=== PATIENT | female | born 1980 | race Two or more races ===

== ENCOUNTER 2024-11-11 17:13 | Inpatient (IN) | payer MEDICAID, OTHER ==
[~2024-11-11] VITALS: Ht 177.8 cm; Wt 123.8 kg
[2024-11-11 17:59] VITALS: PULSE 74; RESP 16; O2SAT 98
--- NOTE | 2024-11-11 18:08 | ECG ---
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
[2024-11-11 18:37] LABS: Hematocrit 42.3 % (36.0-46.0); Hemoglobin 14.3 g/dL (12.2-16.2); Mean Corpuscular Hemoglobin 28.4 pg (28.0-32.0); Mean Corpuscular Volume 84.4 fL (80.0-100.0); Nucleated Red Blood Cells % 0.1 %
[2024-11-11] MEDS: ONDANSETRON HCL 4 MG/2 ML VIAL IV ONE (18:41)
[2024-11-11] MEDS: SODIUM CHLORIDE 0.9% 1,000 ML IV ONE (18:42)
[2024-11-11] MEDS: LORazepam 2MG/ML-1ML VIAL IV ONE ×2 (18:42→22:25)
[2024-11-11 18:56] LABS: COVID19 ANTIGEN SOFIA FIA NEGATIVE (NEGATIVE)
[2024-11-11 18:59] LABS: Alanine Aminotransferase 22 U/L (7-40); Albumin 4.5 g/dL (3.2-4.8); Alkaline Phosphatase 73 U/L (46-116); BUN/Creatinine Ratio 9.4 (10.0-20.0); Bilirubin, Total 0.6 mg/dL (0.2-1.0); Calcium 9.1 mg/dL (8.7-10.4); Glucose 86 mg/dL (74-106); Lipase 47 U/L (12-53); Potassium 4.5 mmol/L (3.5-5.1); Sodium 142 mmol/L (136-145); Total Protein 7.5 g/dL (5.7-8.2)
[2024-11-11 19:01] LABS: Blood Urea Nitrogen 8 mg/dL (9-23); Chloride 109 mmol/L (98-107)
[2024-11-11 19:06] LABS: Anion Gap 10 (5-15); Carbon Dioxide 23 mmol/L (20-31)
--- NOTE | 2024-11-11 19:17 | ED.PDOC ---
GI ASSESSMENT HPI Comments 44 y/o F history of COPD brought in by EMS from home for c/c nausea, vomiting, generalized shaking and extremity contractions, cough, lost of taste and smell, night sweats and new onset of stuttering speech. Patient states she tested positive for COVID more than a week ago. She denies fever, abdominal pain, diarrhea, constipation or dysuria. She is complaining of retrosternal chest pain. Patient has sister, who is a nurse, states she found the patient on the floor, shaking, vomiting, and complaining of shortness of breath. Sister called 911. On arrival to the ED, the patient appears to be shaking uncontrollably, is alert, is having stuttering speech and bilateral hand and foot muscle spasms. She states she has never had problems with stuttering, tremors or seizure activity in the past. 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 Moist mucous membranes.) Neck: Full Range of Motion, Normal Inspection Respiratory: Lungs Clear, No Accessory Muscle Use, No Respiratory Distress, Normal Breath Sounds Cardiovascular: No Edema, No JVD, Regular Rate/Rhythm Breast Exam: Deferred Gastrointestinal: Non Tender, Soft Genitalia: Deferred Pelvic: Deferred Rectal: Deferred Extremities: Non-tender, No pedal edema, Other (Carpal pedal spasms) Neurologic: Alert (Oriented x4), Other (Bilateral upper and lower extremity tremors, stuttering speech) Cerebellar Function: NOT DONE Reflexes: NOT DONE Skin: Dry, Normal Color, Warm Lymphatic: NOT DONE Was a procedure done? Was a procedure done?: No GI differential Dx Differential Diagnosis: Gastritis/PUD, Gastroenteritis, UTI, Dehydration, Electrolyte Imbalance, Food Poisoning, , Viral, Other (viral syndrome) X-Ray, Labs, Meds, VS Vital Signs Date Time Temp Pulse Resp B/P (MAP) Pulse Ox O2 Delivery O2 Flow Rate FiO2 11/11/24 20:00 98.0 98 16 144/99 (114) 95 98.0 11/11/24 18:10 96 Room Air* 0 21 11/11/24 18:07 90 11/11/24 18:00 87 16 146/99 (115) 95 11/11/24 17:59 74 16 98 Room Air* 0 21 11/11/24 17:58 97.7 79 16 163/93 (116) 95 97.7 11/11/24 17:21 98.2 85 24 99/55 95 98.2 Lab Test 11/11/24 22:01 11/11/24 19:20 11/11/24 18:16 11/11/24 18:10 Range/Units Lactic Acid Level Pending Troponin I High Sensitivity < 3 L < 3 L </=34 ng/L Influenza Type A Antigen Negative Negative Influenza Type B Antigen Negative Negative SARS-CoV-2 Antigen (Rapid) Negative NEGATIVE White Blood Count 16.3 H 4.4-10.8 10^3/uL Red Blood Count 5.02 4.0-5.20 10^6/uL Hemoglobin 14.3 12.2-16.2 g/dL Hematocrit 42.3 36.0-46.0 % Mean Corpuscular Volume 84.4 80.0-100.0 fL Mean Corpuscular Hemoglobin 28.4 28.0-32.0 pg Mean Corpuscular Hemoglobin Concent 33.7 32.0-36.0 g/dL Red Cell Distribution Width 14.8 H 11.8-14.3 % Platelet Count 206 140-450 10^3/uL Mean Platelet Volume 9.6 6.9-10.8 fL Neutrophils (%) (Auto) 83.5 H 37.0-80.0 % Lymphocytes (%) (Auto) 10.8 10.0-50.0 % Monocytes (%) (Auto) 5.1 0.0-12.0 % Eosinophils (%) (Auto) 0.3 0.0-7.0 % Basophils (%) (Auto) 0.3 0.0-2.0 % Neutrophils # (Auto) 13.7 H 1.6-8.6 10 ^3/uL Lymphocytes # (Auto) 1.8 0.4-5.4 10 ^3/uL Monocytes # (Auto) 0.8 0-1.3 10 ^3/uL Eosinophils # (Auto) 0.1 0-0.8 10 ^3/uL Basophils # (Auto) 0.1 0-0.2 10 ^3/uL Nucleated Red Blood Cells 0.1 % Sodium Level 142 136-145 mmol/L Potassium Level 4.5 3.5-5.1 mmol/L Chloride Level 109 H 98-107 mmol/L Carbon Dioxide Level 23 20-31 mmol/L Anion Gap 10 5-15 Blood Urea Nitrogen 8 L 9-23 mg/dL Creatinine 0.85 0.550-1.02 mg/dL Glomerular Filtration Rate Calc 87 >90 mL/min BUN/Creatinine Ratio 9.4 L 10.0-20.0 Serum Glucose 86 74-106 mg/dL Calcium Level 9.1 8.7-10.4 mg/dL Total Bilirubin 0.6 0.2-1.0 mg/dL Aspartate Amino Transferase (AST) 22 13-40 U/L Alanine Aminotransferase (ALT) 22 7-40 U/L Alkaline Phosphatase 73 46-116 U/L B-Type Natriuretic Peptide 38.41 0-100 pg/mL Total Protein 7.5 5.7-8.2 g/dL Albumin 4.5 3.2-4.8 g/dL Lipase 47 12-53 U/L Current Medications Medications (Trade) Dose Ordered Sig/Krish Route Start Time Stop Time Status Last Admin Sodium Chloride 1,000 ml @ 1,000 mls/hr Q1H ONCE IV 11/11/24 17:45 11/11/24 18:44 DC 11/11/24 18:42 Ondansetron HCl (Zofran) 4 mg ONCE ONCE IV 11/11/24 17:45 11/11/24 17:47 DC 11/11/24 18:41 Lorazepam (Ativan Inj) 1 mg ONCE ONCE IV 11/11/24 18:30 11/11/24 18:31 DC 11/11/24 18:42 X-Ray, Labs, Meds, VS Comment 44 y/o F history of COPD brought in by EMS from home for c/c nausea, vomiting, generalized shaking and extremity contractions, cough, lost of taste and smell, night sweats and new onset of stuttering speech. Vitals remarkable for BP 163/93 Exam remarkable for uncontrollable shaking of extremities, stuttering speech, active vomiting Rhythm strip independently interpreted by me: Sinus rhythm, rate 79, no ectopy. Head CT unremarkable Chest x-ray FINDINGS/IMPRESSION: Minimal right basilar opacity. The cardiomediastinal silhouette is unremarkable. No pleural effusion or pneumothorax. No acute osseous abnormality. CBC remarkable for WBC 16.3, basic metabolic panel, BNP, troponin, lipase, influenza and COVID tests unremarkable. Patient treated with the following in the ED: 1 L 0.9 normal saline IV bolus, Zofran 4 mg IV, Ativan 1 mg IV. After Ativan, tremors, stuttering and carpal pedal spasms resolved. Patient also received Rocephin 1 g IV and Zithromax 500 mg IV to cover possible pneumonia. Patient had recurrence of shaking movements, so received an additional 1 mg of A tivan IV which resolved the symptoms. Plan is to admit the patient for neurology evaluation and IV antibiotics. Time of 1ST Reevaluation: 18:45 Reevaluation 1ST: Unchanged Patient Education/Counseling: Diagnosis, Treatment Family Education/Counseling: No Family Present SEPSIS Sepsis Screen Date sepsis recognized/suspect: Nov 11, 2024 Time Sepsis recognized/suspect: 1808 Recent Procedure: No On Antibiotic Therapy: No Respiratory Rate >20: No Heart Rate >90: No Temp<36 C (96.8 F) or >38.3 C: No SBP <90 or MAP <65 mmHG: No New Acute Mental Status Change: No Is the patient on CPAP, BIPAP,: No Physician Orders Urinalysis (11/11/24 17:45) Head Without Contrast (11/11/24 18:16) Chest Portable (11/11/24 18:16) Stool Wbc (11/11/24 20:41) Stool Bacterial Culture (11/11/24 20:41) Stool Occult Blood (11/11/24 20:41) Ph Stool (11/11/24 20:41) Lactic Acid W/ Reflex Order (11/11/24 21:48) Blood Culture (11/11/24 21:48) Azithromycin 500mg/ 250ml (Zithromax 50 (11/11/24 22:00) Vital Signs Date Time Temp Pulse Resp B/P (MAP) Pulse Ox O2 Delivery O2 Flow Rate FiO2 11/11/24 20:00 98.0 98 16 144/99 (114) 95 98.0 11/11/24 18:10 96 Room Air* 0 21 11/11/24 18:07 90 11/11/24 18:00 87 16 146/99 (115) 95 11/11/24 17:59 74 16 98 Room Air* 0 21 11/11/24 17:58 97.7 79 16 163/93 (116) 95 97.7 11/11/24 17:21 98.2 85 24 99/55 95 98.2 Laboratory Tests Test 11/11/24 18:10 11/11/24 22:01 White Blood Count 16.3 10^3/uL (4.4-10.8) H Lactic Acid Level Pending Medications Medications Dose Ordered Sig/Krish Route Start Time Stop Time Status Last Admin Dose Admin Lorazepam 1 mg ONCE ONCE IV 11/11/24 18:30 11/11/24 18:31 DC 11/11/24 18:42 Lorazepam 2 mg STK-MED ONCE .ROUTE 11/11/24 22:14 11/11/24 22:10 DC 11/11/24 22:26 Ondansetron HCl 4 mg ONCE ONCE IV 11/11/24 17:45 11/11/24 17:47 DC 11/11/24 18:41 Sodium Chloride 1,000 ml @ 1,000 mls/hr Q1H ONCE IV 11/11/24 17:45 11/11/24 18:44 DC 11/11/24 18:42 Departure 1 Departure Time of Disposition: 22:00 Impression: Primary Impression: Tremor Additional Impressions: Muscle spasms of both lower extremities Stuttering Pneumonia Disposition: ADMITTED INPATIENT Admit to: Tele Condition: Guarded Critical Care Note Critical Care Time?: No Stability Stability form required: No Heart Score Heart Score: Heart Score Response (Comments) Value History N/A 0 EKG N/A 0 Age N/A 0 Risk Factors N/A 0 Troponin N/A 0 Total 0 I personally scribed for ASHLEY CARPENTER MD ([email or web address]) on 11/11/24 at 19:17. Electronically submitted by Xavier Us ([email or web address]). ASHLEY CARPENTER MD Nov 11, 2024 19:17
--- NOTE | 2024-11-11 21:21 | DVH ---
INDICATION: cp TECHNIQUE: Frontal view of the chest. COMPARISON: None FINDINGS/IMPRESSION: Minimal right basilar opacity. The cardiomediastinal silhouette is unremarkable . No pleural effusion or pneumothorax. No acute osseous abnormality.
--- NOTE | 2024-11-11 21:35 | DVH ---
EXAM: CT HEAD WITHOUT CONTRAST INDICATION: New onset Tremors, muscle spasms, stuttering TECHNIQUE: CT of the head without intravenous contrast. Radiation Dose Information: CT Dose: CTDI volume is 67.21 mGy. Dose-length product is 1322.55 mGy*cm The dose indicators for CT are the volume Computed Tomography (CT) Dose Index (CTDIvol) and the Dose Length Product (DLP), and are measured in units of mGy and mGy-cm, respectively. These indicators are not patient dose, but values generated from the CT scanner acquisition factors. The report includes radiation exposure data for exposures received during this examination. COMPARISON: None FINDINGS: There is no evidence of acute intracranial hemorrhage, extra-axial collection, mass effect, midline s hift, herniation or hydrocephalus. The ventricles, sulci and cisterns are age appropriate. The newell-white differentiation is intact. Patchy periventricular and subcortical white matter hypoattenuation is nonspecific but may be related to small vessel ischemic disease. The visualized paranasal sinuses and mastoid air cells are clear. The surrounding soft tissues and osseous structures are unremarkable. IMPRESSION: 1. No acute intracranial abnormality.
[2024-11-11] MEDS: ONDANSETRON HCL 4 MG/2 ML VIAL ONE (22:25)
[2024-11-11] MEDS: LORazepam 2MG/ML-1ML VIAL ONE (22:26)
[2024-11-11] MEDS ORDERED: DOCUSATE SOD 100 MG CAP PO PRN (23:15)
[2024-11-11] MEDS ORDERED: ONDANSETRON HCL 4 MG/2 ML VIAL IV PRN (23:15)
[2024-11-11] MEDS ORDERED: ACETAMINOPHEN 325 MG TAB PO PRN (23:15)
[2024-11-11] MEDS: LACTATED RINGER'S 1,000 ML IV SCH (23:15)
[2024-11-11] MEDS: AZITHROMYCIN 500MG/ 250ML 250 ML IV ONE (23:55)
--- NOTE | 2024-11-12 00:09 | DVHHP2 ---
History of Present Illness Reason for Visit: Tremor History of Present Illness The patient is a 44-year-old female with past medical history of COPD who presented to [facility] ED with complaint of intractable nausea and vomiting. Patient reports she tested positive for COVID for more than a week, experiencing generalized shaking, contraction of extremity, cough, loss of taste and smell, night sweats, new onset of stuttering speech, retrosternal chest pain. Patient's sister, who is a nurse, reports she found the patient on the floor, shaking, vomiting, and complaining of shortness of breath. Sister called 911. On arrival to the ED, the patient appears to be shaking uncontrollably. Patient was seen and evaluated in the ED, laboratory data shows WBC 16.3, platelets 206, sodium 142, potassium 4.5, BUN eight, creatinine 0.85, glucose 86, calcium 9.1, troponin three, lipase 47, BNP 38.41, blood pressure 144/99, heart rate 98, temperature 98.0 F, O2 saturation 96% on room air. Please see medication orders section in the computer. On my assessment, patient denied chest pain, no headache, no dizziness, no diaphoresis, no shortness of breaths, no nausea, no vomiting, no fever, no chills. Patient was admitted for further evaluation and medical management. Past Medical History COPD Past Surgical History Denies all surgeries Family History Reviewed, noncontributory to the management of this case. Past Social History The patient lives at home, denies smoking, alcohol or illicit drugs abuse. Review of Systems Constitutional: No: Fever, Chills, Sweats, Weakness, Malaise, Other Eyes: No: Pain, Vision change, Conjunctivae inflammation, Eyelid inflammation, Other, Redness ENT: No: Ear pain, Ear discharge, Nose pain, Nose discharge, Nose congestion, Mouth pain, Mouth swelling, Throat pain, Throat swelling, Other Respiratory: Cough, Shortness of breath; No: Dry, SOB with excertion, Wheezing, Hemoptysis, Pleuritic Pain, Sputum, Wheezing, Other Cardiovascular: No: Chest Pain, Palpitations, Orthopnea, Paroxysmal Noc. Dyspnea, Edema, Lt Headedness, Other Gastrointestinal: Nausea, Vomiting; No: Abdominal Pain, Diarrhea, Constipation, Melena, Hematochezia, Other Genitourinary: No Dysuria, No Frequency, No Incontinence, No Hematuria, No Retention, No Other Musculoskeletal: No: other, neck pain, shoulder pain, arm pain, back pain, hand pain, leg pain, foot pain Skin: No: Rash, Lesions, Jaundice, Bruising, Other Neurological: No: Weakness, Numbness, Incoordination, Change in speech, Confusion, Seizures, Other Allergies: Coded Allergies: NO KNOWN ALLERGIES (Unverified , 11/11/24) Medications Current Medications Medications Dose Ordered Sig/Krish Route Start Time Stop Time Status Last Admin Dose Admin Ceftriaxone Sodium 50 ml @ 100 mls/hr DAILY@2200 IV 11/12/24 22:00 Lorazepam 1 mg Q8HP PRN IV 11/11/24 23:15 Acetaminophen/ Hydrocodone Bitart 1 tab Q4HP PRN PO 11/11/24 23:15 Ondansetron HCl 4 mg Q4HP PRN IV 11/11/24 23:15 Docusate Sodium 100 mg BIDPRN PRN PO 11/11/24 23:15 Acetaminophen 650 mg Q6HP PRN PO 11/11/24 23:15 Lactated Ringer's 1,000 ml @ 75 mls/hr [id number] IV 11/11/24 23:15 Exam Vital Signs Vital Signs Date Time Temp Pulse Resp B/P (MAP) Pulse Ox O2 Delivery O2 Flow Rate FiO2 11/11/24 20:00 98.0 98 16 144/99 (114) 95 98.0 11/11/24 18:10 Room Air* 0 21 General Appearance: Alert, Oriented X3, Cooperative, No acute distress HEENT: Atraumatic, PERRLA, EOMI, Mucous membr. moist/pink Respiratory: Normal air movement Cardiovascular: Regular rate, Normal S1, Normal S2, No murmurs Abdominal: Normal bowel sounds, Soft, No tenderness, No hepatospenomegaly, No masses Extremities: No clubbing, No cyanosis, No edema, Normal pulses, No tenderness/swelling Skin: No rashes, No breakdown, No significant lesion Neuro: Normal gait, Normal speech, Strength at 5/5 X4 ext, Normal tone, Sensation intact, Cranial nerves 3-12 NL, Reflexes 2+ Psych/Mental Status: Mental status NL, Mood NL Labs/Xrays Labs Test 11/11/24 22:01 11/11/24 19:20 11/11/24 18:16 11/11/24 18:10 Range/Units Lactic Acid Level 1.0 0.4-2.0 mmol/L Troponin I High Sensitivity < 3 L </=34 ng/L Influenza Type A Antigen Negative Negative Influenza Type B Antigen Negative Negative SARS-CoV-2 Antigen (Rapid) Negative NEGATIVE White Blood Count 16.3 H 4.4-10.8 10^3/uL Red Blood Count 5.02 4.0-5.20 10^6/uL Hemoglobin 14.3 12.2-16.2 g/dL Hematocrit 42.3 36.0-46.0 % Mean Corpuscular Volume 84.4 80.0-100.0 fL Mean Corpuscular Hemoglobin 28.4 28.0-32.0 pg Mean Corpuscular Hemoglobin Concent 33.7 32.0-36.0 g/dL Red Cell Distribution Width 14.8 H 11.8-14.3 % Platelet Count 206 140-450 10^3/uL Mean Platelet Volume 9.6 6.9-10.8 fL Neutrophils (%) (Auto) 83.5 H 37.0-80.0 % Lymphocytes (%) (Auto) 10.8 10.0-50.0 % Monocytes (%) (Auto) 5.1 0.0-12.0 % Eosinophils (%) (Auto) 0.3 0.0-7.0 % Basophils (%) (Auto) 0.3 0.0-2.0 % Neutrophils # (Auto) 13.7 H 1.6-8.6 10 ^3/uL Lymphocytes # (Auto) 1.8 0.4-5.4 10 ^3/uL Monocytes # (Auto) 0.8 0-1.3 10 ^3/uL Eosinophils # (Auto) 0.1 0-0.8 10 ^3/uL Basophils # (Auto) 0.1 0-0.2 10 ^3/uL Nucleated Red Blood Cells 0.1 % Sodium Level 142 136-145 mmol/L Potassium Level 4.5 3.5-5.1 mmol/L Chloride Level 109 H 98-107 mmol/L Carbon Dioxide Level 23 20-31 mmol/L Anion Gap 10 5-15 Blood Urea Nitrogen 8 L 9-23 mg/dL Creatinine 0.85 0.550-1.02 mg/dL Glomerular Filtration Rate Calc 87 >90 mL/min BUN/Creatinine Ratio 9.4 L 10.0-20.0 Serum Glucose 86 74-106 mg/dL Calcium Level 9.1 8.7-10.4 mg/dL Total Bilirubin 0.6 0.2-1.0 mg/dL Aspartate Amino Transferase (AST) 22 13-40 U/L Alanine Aminotransferase (ALT) 22 7-40 U/L Alkaline Phosphatase 73 46-116 U/L B-Type Natriuretic Peptide 38.41 0-100 pg/mL Total Protein 7.5 5.7-8.2 g/dL Albumin 4.5 3.2-4.8 g/dL Lipase 47 12-53 U/L PATIENT: JUDY HEIN ACCT: [id number] UNIT: [id number] : 1980 LOC: ER ROOM / BED: / AGE / SEX: 44 / F ADM STATUS: REG ER SERVICE 15 ORDERING PHYSICIAN: ASHLEY CARPENTER MD PROCEDURE(s): HWOCT - HEAD WITHOUT CONTRAST REASON: New onset Tremors, muscle spasms, stuttering ORDER NUMBER(s): [id number], ACCESSION NUMBER(s): [id number] EXAM: CT HEAD WITHOUT CONTRAST INDICATION: New onset Tremors, muscle spasms, stuttering TECHNIQUE: CT of the head without intravenous contrast. Radiation Dose Information: CT Dose: CTDI volume is 67.21 mGy. Dose-length product is 1322.55 mGy*cm The dose indicators for CT are the volume Computed Tomography (CT) Dose Index (CTDIvol) and the Dose Length Product (DLP), and are measured in units of mGy and mGy-cm, respectively. These indicators are not patient dose, but values generated from the CT scanner acquisition factors. The report includes radiation exposure data for exposures received during this examination. COMPARISON: None FINDINGS: There is no evidence of acute intracranial hemorrhage, extra-axial collection, mass effect, midline shift, herniation or hydrocephalus. The ventricles, sulci and cisterns are age appropriate. The newell-white differentiation is intact. Patchy periventricular and subcortical white matter hypoattenuation is nonspecific but may be related to small vessel ischemic disease. The visualized paranasal sinuses and mastoid air cells are clear. The surrounding soft tissues and osseous structures are unremarkable. IMPRESSION: 1. No acute intracranial abnormality. ORDERING PHYSICIAN: ASHLEY CARPENTER MD PROCEDURE(s): CXRP - CHEST PORTABLE REASON: cp ORDER NUMBER(s): [id number], ACCESSION NUMBER(s): [id number] INDICATION: cp TECHNIQUE: Frontal view of the chest. COMPARISON: None FINDINGS/IMPRESSION: Minimal right basilar opacity. The cardiomediastinal silhouette is unremarkable. No pleural effusion or pneumothorax. No acute osseous abnormality. SEPSIS Sepsis Screen Date sepsis recognized/suspect: Nov 11, 2024 Time Sepsis recognized/suspect: 1808 Recent Procedure: No On Antibiotic Therapy: No Respiratory Rate >20: No Heart Rate >90: No Temp<36 C (96.8 F) or >38.3 C: No SBP <90 or MAP <65 mmHG: No New Acute Mental Status Change: No Is the patient on CPAP, BIPAP,: No Physician Orders Urinalysis (11/11/24 17:45) Head Without Contrast (11/11/24 18:16) Chest Portable (11/11/24 18:16) Stool Wbc (11/11/24 20:41) Stool Bacterial Culture (11/11/24 20:41) Stool Occult Blood (11/11/24 20:41) Ph Stool (11/11/24 20:41) Blood Culture (11/11/24 21:48) Ceftriaxone 1gm/50ml D5w (Rocephin) (11/12/24 22:00) Lorazepam 2mg/Ml Inj (Ativan Inj) (11/11/24 23:15) Allergies (11/11/24 23:05) Code Status (11/11/24 23:05) Oxygen Per Hour (11/11/24 23:05) Hydrocodone-Acet 5/325mg Tab ([place] 5/32 (11/11/24 23:15) Ondansetron Hcl (Zofran) (11/11/24 23:15) Docusate Sodium Capsule (Colace Capsule) (11/11/24 23:15) Complete Blood Count (11/12/24 04:00) Comprehensive Metabolic Panel (11/12/24 04:00) Condition: Serious (11/11/24 23:05) Acetaminophen Tablet (Tylenol Tablet) (11/11/24 23:15) Clear Liq Diet (11/12/24 Breakfast) Bedrest With Bathroom Privileg (11/11/24 23:05) Sequential Compression Device (11/11/24 ) Lactated Ringer's (11/11/24 23:15) Vital Signs Date Time Temp Pulse Resp B/P (MAP) Pulse Ox O2 Delivery O2 Flow Rate FiO2 11/11/24 20:00 98.0 98 16 144/99 (114) 95 98.0 11/11/24 18:10 96 Room Air* 0 21 11/11/24 18:07 90 11/11/24 18:00 87 16 146/99 (115) 95 11/11/24 17:59 74 16 98 Room Air* 0 21 11/11/24 17:58 97.7 79 16 163/93 (116) 95 97.7 11/11/24 17:21 98.2 85 24 99/55 95 98.2 Laboratory Tests Test 11/11/24 18:10 11/11/24 22:01 White Blood Count 16.3 10^3/uL (4.4-10.8) H Lactic Acid Level 1.0 mmol/L (0.4-2.0) Medications Medications Dose Ordered Sig/Krish Route Start Time Stop Time Status Last Admin Dose Admin Lorazepam 1 mg ONCE ONCE IV 11/11/24 18:30 11/11/24 18:31 DC 11/11/24 18:42 1 MG Lorazepam 2 mg STK-MED ONCE .ROUTE 11/11/24 22:14 11/11/24 22:10 DC 11/11/24 22:26 2 MG Ondansetron HCl 4 mg ONCE ONCE IV 11/11/24 17:45 11/11/24 17:47 DC 11/11/24 18:41 4 MG Sodium Chloride 1,000 ml @ 1,000 mls/hr Q1H ONCE IV 11/11/24 17:45 11/11/24 18:44 DC 11/11/24 18:42 1,000 MLS/HR Assessment/Plan Assessment/Plan Tremor Stuttering Muscle spasms of both lower extremities Pneumonia, unspecified organism Plan 1. Admit to telemetry unit 2. Breathing treatment 3. Pain control management 4. IV antibiotic management 5. Management of fluids and electrolytes 6. Consultation for hospitalist 7. Diagnostic test chest x-ray 8. DVT prophylaxis-on SCDs 9. Repeat labs CBC, CMP in a.m. 10. Home medication reviewed and reconciled 11. Continue with current medical management 12. Treatment plan discussed with patient and RN. Patient verbalized understanding. Plan discussed with: Patient, Other (RN) My Orders Orders - MAHOGANY MARQUIS DNP Procedure Category Date Status Time Ceftriaxone 1gm/50ml PHA 11/12/24 In Process D5w (Rocephin) 22:00 Lorazepam 2mg/Ml Inj PHA 11/11/24 In Process (Ativan Inj) 23:15 Allergies SHUN 11/11/24 In Process 23:05 Code Status CODE 11/11/24 Transmitted 23:05 Oxygen Per Hour RT 11/11/24 Transmitted 23:05 Hydrocodone-Acet PHA 11/11/24 In Process 5/325mg Tab ([place] 23:15 Ondansetron Hcl PHA 11/11/24 In Process (Zofran) 23:15 Docusate Sodium PHA 11/11/24 In Process Capsule (Colace 23:15 Complete Blood Count LAB 11/12/24 Logged 04:00 Comprehensive LAB 11/12/24 Logged Metabolic Panel 04:00 Condition: Serious SHUN 11/11/24 In Process 23:05 Acetaminophen Tablet PHA 11/11/24 In Process (Tylenol Tablet) 23:15 Clear Liq Diet DIET 11/12/24 Transmitted Breakfast Bedrest With Bathroom SHUN 11/11/24 In Process Privileg 23:05 Sequential SHUN 11/11/24 In Process Compression Device Lactated Ringer's PHA 11/11/24 In Process 23:15 Problem List: (1) Tremor (2) Stuttering (3) Muscle spasms of both lower extremities (4) Pneumonia, unspecified organism Date of Service: Nov 12, 2024 Billing Provider: MAHOGANY MARQUIS DNP Common Visit Codes: [id number] INP/OBS CARE (HIGH) MAHOGANY MARQUIS DNP Nov 12, 2024 00:09
[2024-11-12] MEDS ORDERED: MORPHINE SULFATE INJ 2 MG/ml SYRG IV PRN (00:15)
[2024-11-12] MEDS ORDERED: NITROGLYCERIN 0.4 MG SL TAB SL PRN (00:15)
[2024-11-12 04:52] LABS: Hematocrit 34.8 % (36.0-46.0); Hemoglobin 12.1 g/dL (12.2-16.2); Mean Corpuscular Hemoglobin 28.6 pg (28.0-32.0); Mean Corpuscular Volume 82.4 fL (80.0-100.0); Nucleated Red Blood Cells % 0.0 %
[2024-11-12 05:01] LABS: Alanine Aminotransferase 20 U/L (7-40); Albumin 3.9 g/dL (3.2-4.8); Alkaline Phosphatase 60 U/L (46-116); Anion Gap 5 (5-15); BUN/Creatinine Ratio 11.0 (10.0-20.0); Bilirubin, Total 0.6 mg/dL (0.2-1.0); Carbon Dioxide 25 mmol/L (20-31); Glucose 86 mg/dL (74-106); Potassium 4.0 mmol/L (3.5-5.1); Sodium 141 mmol/L (136-145); Total Protein 6.2 g/dL (5.7-8.2)
[2024-11-12 05:14] LABS: Blood Urea Nitrogen 8 mg/dL (9-23); Calcium 8.4 mg/dL (8.7-10.4); Chloride 111 mmol/L (98-107)
[2024-11-12 07:40] VITALS: PULSE 71; RESP 16; O2SAT 98
[2024-11-12 09:40] VITALS: PULSE 67; RESP 15; O2SAT 96
[2024-11-12 16:12] LABS: Urine Protein, UAD Negative (Negative)
--- NOTE | 2024-11-12 18:04 | DVHPN2 ---
Subjective I am assuming the care of the patient from today on bruits. Patient has stated that she has some foot muscle spasm as well as and muscle spasms tremors the whole-body a left facial droop. Also patient stated that she was recently positive for COVID 19, COVID-19 is negative here. Changes from previous H/P or p: No Changes Eyes: No Pain, No Vision change, No Conjunctivae inflammation, No Eyelid inflammation, No Other, No Redness ENT: No Ear pain, No Ear discharge, No Nose pain, No Nose discharge, No Nose congestion, No Mouth pain, No Mouth swelling, No Throat pain, No Throat swelling, No Other Cardiovascular: No Chest Pain, No Palpitations, No Orthopnea, No Paroxysmal Noc. Dyspnea, No Edema, No Lt Headedness, No Other Respiratory: Cough; No Dry; Shortness of breath; No SOB with excertion, No Wheezing, No Hemoptysis, No Pleuritic Pain, No Sputum, No Other Gastrointestinal: Nausea, Vomiting; No Abdominal Pain, No Diarrhea, No Constipation, No Melena, No Hematochezia, No Other Genitourinary: No Dysuria, No Frequency, No Incontinence, No Hematuria, No Retention, No Other Musculoskeletal: No other, No neck pain, No shoulder pain, No arm pain, No back pain, No hand pain, No leg pain, No foot pain Skin: No Rash, No Lesions, No Jaundice, No Bruising, No Other Objective Vitals Vital Signs Date Time Temp Pulse Resp B/P (MAP) Pulse Ox O2 Delivery O2 Flow Rate FiO2 11/12/24 16:00 70 11/12/24 16:00 16 140/101 (114) 97 11/12/24 09:40 Room Air* 0 21 11/12/24 09:40 98.0 98.0 Intake/Output Intake and Output 11/12/24 07:00 Intake Total 1000 ml Output Total 800 ml Balance 200 ml Intake IV Total 1000 ml Output Urine Total 300 ml Stool Total 500 ml Exam HEENT pupils are reactive, no left fistula Neck is supple CVS S1-S2 regular rate and rhythm Respiratory bile duct clear GI positive bowel sounds Extremity no edema P[employer]ER no motor deficit Medications Current Medications Medications Dose Ordered Sig/Krish Route Start Time Stop Time Status Last Admin Dose Admin Ceftriaxone Sodium 50 ml @ 100 mls/hr DAILY@2200 IV 11/12/24 22:00 Lorazepam 1 mg Q8HP PRN IV 11/11/24 23:15 Acetaminophen/ Hydrocodone Bitart 1 tab Q4HP PRN PO 11/11/24 23:15 Ondansetron HCl 4 mg Q4HP PRN IV 11/11/24 23:15 Docusate Sodium 100 mg BIDPRN PRN PO 11/11/24 23:15 Acetaminophen 650 mg Q6HP PRN PO 11/11/24 23:15 Lactated Ringer's 1,000 ml @ 75 mls/hr [id number] IV 11/11/24 23:15 11/11/24 23:15 75 MLS/HR Nitroglycerin 0.4 mg Q5MINP PRN SL 11/12/24 00:15 Morphine Sulfate 2 mg Q30M PRN IV 11/12/24 00:15 Azithromycin 250 ml @ 125 mls/hr DAILY@2200 IV 11/12/24 22:00 Laboratory Results Laboratory Tests 11/12/24 04:32 Chemistry Test 11/11/24 18:10 11/12/24 04:32 Albumin 4.5 g/dL (3.2-4.8) 3.9 g/dL (3.2-4.8) Calcium Level 9.1 mg/dL (8.7-10.4) 8.4 mg/dL (8.7-10.4) L Total Protein 7.5 g/dL (5.7-8.2) 6.2 g/dL (5.7-8.2) Lipid panel Test 11/11/24 18:10 Lipase 47 U/L (12-53) Cardiac Markers Test 11/11/24 18:10 B-Type Natriuretic Peptide 38.41 pg/mL (0-100) LFT Test 11/11/24 18:10 11/12/24 04:32 Alanine Aminotransferase (ALT) 22 U/L (7-40) 20 U/L (7-40) Alkaline Phosphatase 73 U/L (46-116) 60 U/L (46-116) Aspartate Amino Transferase (AST) 22 U/L (13-40) 23 U/L (13-40) Total Bilirubin 0.6 mg/dL (0.2-1.0) 0.6 mg/dL (0.2-1.0) Urinalysis Test 11/12/24 00:00 Urine Color Colorless (Yellow) Urine Clarity Clear (Clear) Urine pH 6.5 (5.0-9.0) Urine Specific [place] 1.023 (1.001-1.035) Urine Protein Negative (Negative) Urine Ketones Negative (Negative) Urine Blood 3+ /uL (Negative) H Urine Nitrite Negative (Negative) Urine Bilirubin Negative (Negative) Urine Urobilinogen Normal mg/dL (Negative) Urine Leukocyte Esterase 1+ /uL (Negative) Urine RBC 607 /hpf (0 - 4) Urine Microscopic WBC 9 /HPF (0-5) H Urine Squamous Epithelial Cells Few /hpf (<5) Urine Bacteria None seen /hpf (None Seen) Urine Mucus Few (None Seen) Urine Glucose Normal mg/dL (Normal) Assessment/Plan Assessment/Plan 40-year-old female with known history of COPD, presented to the hospital with a generalized body spasms tremors questionable left facial droop(not present), slurred speech found to have 1. Generalized body spasms/tremor/slurred speech rule out acute CVA 2. Generalized body muscle spasms rule out any seizures 3. Right basilar lung basilar consolidation/pneumonia, on IV antibiotics 4.COPD currently not in exacerbation -, debride noncontrast neurology consultation common bile duct for anesthesia likely DVTs IV antibiotics can be switched to p.o. antibiotics for pneumonia upon discharge. Plan discussed with: Patient My Orders Orders - LINDA VALENCIA MD Procedure Category Date Status Time Brain Head Wo Contrast MRI 11/12/24 Logged 17:57 Date of Service: Nov 12, 2024 Billing Provider: LINDA VALENCIA MD Common Visit Codes: [id number] INP/OBS CARE(MOD) LINDA VALENCIA MD Nov 12, 2024 18:04
[2024-11-12] MEDS: AZITHROMYCIN 500MG/ 250ML 250 ML IV SCH (23:50)
[2024-11-13] VITALS (9 sets, daily range): BP systolic 120–146; BP diastolic 75–91; PULSE 60–75; RESP 16–20; TEMP 97.4–98.9; O2SAT 95–98
[2024-11-13] MEDS: LORazepam 2MG/ML-1ML VIAL IV PRN (01:19)
[2024-11-13] MEDS: HYDROcodone-ACET 5/325MG TAB PO PRN (09:03)
--- NOTE | 2024-11-13 12:20 | DVH ---
EXAMINATION: MRI BRAIN HEAD WO CONTRAST INDICATION: Slurred speech/left facial loop COMPARISON: CT HEAD WITHOUT CONTRAST on DOS: 11/11/24 TECHNIQUE: Multiplanar, multisequence magnetic resonance imaging of the brain was performed without the use of i ntravenous contrast. FINDINGS: No evidence of acute or remote infarct. No intracranial hemorrhage. No mass effect. There is periventricular/deep white matter T2/FLAIR hyperintensity is nonspecific, but most commonly associated with chronic microvascular disease. The ventricles and sulci are normal in size for age. Clear basal cisterns. Flow voids in the major intracranial vessels are maintained. No abnormality of the orbits. Paranasal sinuses and mastoid air cells are clear. No abnormality of the visualized osseous structures and extracranial soft tissues. IMPRESSION: No acute infarct, intracranial hemorrhage, mass effect, or hydrocephalus.
--- NOTE | 2024-11-13 22:31 | DVHPN2 ---
Subjective Admitted for generalized body shakes. Her MRI of the brain is unremarkable. Patient's speech at times is normal. Appears possible supra tentorial/psychogenic in nature. Changes from previous H/P or p: No Changes Eyes: No Pain, No Vision change, No Conjunctivae inflammation, No Eyelid inflammation, No Other, No Redness ENT: No Ear pain, No Ear discharge, No Nose pain, No Nose discharge, No Nose congestion, No Mouth pain, No Mouth swelling, No Throat pain, No Throat swelling, No Other Cardiovascular: No Chest Pain, No Palpitations, No Orthopnea, No Paroxysmal Noc. Dyspnea, No Edema, No Lt Headedness, No Other Respiratory: Cough; No Dry; Shortness of breath; No SOB with excertion, No Wheezing, No Hemoptysis, No Pleuritic Pain, No Sputum, No Other Gastrointestinal: Nausea, Vomiting; No Abdominal Pain, No Diarrhea, No Constipation, No Melena, No Hematochezia, No Other Genitourinary: No Dysuria, No Frequency, No Incontinence, No Hematuria, No Retention, No Other Musculoskeletal: No other, No neck pain, No shoulder pain, No arm pain, No back pain, No hand pain, No leg pain, No foot pain Skin: No Rash, No Lesions, No Jaundice, No Bruising, No Other Objective Vitals Vital Signs Date Time Temp Pulse Resp B/P (MAP) Pulse Ox O2 Delivery O2 Flow Rate FiO2 11/13/24 20:00 69 16 96 Room Air* 0 21 11/13/24 17:00 98.4 133/91 (105) 98.4 Intake/Output Intake and Output 11/13/24 07:00 Intake Total 450 ml Output Total 0 ml Balance 450 ml Intake Oral 200 ml IV Total 250 ml Output Urine Total 0 ml Exam Alert awake oriented x3. Able to speak normally and times speaks with a slow nurse/slurred redness during conversation. Able to move all four extremities. No visible shakes tremors fasciculations noted. Heart regular rate and rhythm S1-S2. Lungs fair air movement without rales wheezes. Abdomen obese soft positive bowel sounds. Extremities no edema positive pulses. Neurologically no focal deficits. Medications Current Medications Medications Dose Ordered Sig/Krish Route Start Time Stop Time Status Last Admin Dose Admin Ceftriaxone Sodium 50 ml @ 100 mls/hr DAILY@2200 IV 11/12/24 22:00 11/13/24 21:17 100 MLS/HR Lorazepam 1 mg Q8HP PRN IV 11/11/24 23:15 11/13/24 01:19 1 MG Acetaminophen/ Hydrocodone Bitart 1 tab Q4HP PRN PO 11/11/24 23:15 11/13/24 09:03 1 TAB Ondansetron HCl 4 mg Q4HP PRN IV 11/11/24 23:15 Docusate Sodium 100 mg BIDPRN PRN PO 11/11/24 23:15 Acetaminophen 650 mg Q6HP PRN PO 11/11/24 23:15 Lactated Ringer's 1,000 ml @ 75 mls/hr [id number] IV 11/11/24 23:15 11/13/24 12:56 75 MLS/HR Nitroglycerin 0.4 mg Q5MINP PRN SL 11/12/24 00:15 Morphine Sulfate 2 mg Q30M PRN IV 11/12/24 00:15 Azithromycin 250 ml @ 125 mls/hr DAILY@2200 IV 11/12/24 22:00 11/13/24 22:20 125 MLS/HR Laboratory Results Laboratory Tests 11/12/24 04:32 Urinalysis Test 11/12/24 00:00 Urine Color Colorless (Yellow) Urine Clarity Clear (Clear) Urine pH 6.5 (5.0-9.0) Urine Specific [place] 1.023 (1.001-1.035) Urine Protein Negative (Negative) Urine Ketones Negative (Negative) Urine Blood 3+ /uL (Negative) H Urine Nitrite Negative (Negative) Urine Bilirubin Negative (Negative) Urine Urobilinogen Normal mg/dL (Negative) Urine Leukocyte Esterase 1+ /uL (Negative) Urine RBC 607 /hpf (0 - 4) Urine Microscopic WBC 9 /HPF (0-5) H Urine Squamous Epithelial Cells Few /hpf (<5) Urine Bacteria None seen /hpf (None Seen) Urine Mucus Few (None Seen) Urine Glucose Normal mg/dL (Normal) Microbiology Microbiology Date/Time Source Procedure Growth Status 11/11/24 22:10 Blood Blood Culture - Preliminary NO GROWTH AFTER 48 HOURS OF INCUBATION. Resulted Assessment/Plan Assessment/Plan 1. Generalized body spasms/tremor/slurred speech rule out acute CVA 2. Generalized body muscle spasms rule out any seizures 3. Right basilar lung basilar consolidation/pneumonia, on IV antibiotics 4.COPD currently not in exacerbation Her symptoms and atypical presentation of shakes tremors appears non neurogenic possible supratentorial/psychogenic in nature. We will advance her diet. Encouraged out of bed ambulate. Continue present management if she remains stable consider discharge home tomorrow. Discussed with the patient Plan discussed with: Patient, Other My Orders Orders - RUTHANN YOUNG MD Procedure Category Date Status Time * Dietary Consult CONS 11/13/24 Transmitted 17:40 Pt Request For Service PT 11/13/24 Logged 22:26 Cardiac DIET 11/14/24 Transmitted Diet-2gna,Lofat,Lochol Breakfast Thyroid Stimulating LAB 11/13/24 Transmitted Hormone 22:28 Free T4 (Free LAB 11/13/24 Transmitted Thyroxine) 22:28 Vitamin B12 LAB 11/13/24 Transmitted 22:28 C-Reactive Protein LAB 11/13/24 Transmitted 22:28 Date of Service: Nov 13, 2024 Billing Provider: RUTHANN YOUNG MD Common Visit Codes: [id number] INP/OBS CARE(MOD) RUTHANN YOUNG MD Nov 13, 2024 22:31
[2024-11-14] VITALS (8 sets, daily range): BP systolic 107–141; BP diastolic 62–92; PULSE 61–74; RESP 16–18; TEMP 97.7–98.6; O2SAT 96–100
[2024-11-14 12:36] LABS: Free T4 (Free Thyroxine) 1.39 ng/dL (0.89-1.76)
--- NOTE | 2024-11-14 17:20 | DVH ---
EXAM: MRI CERVICAL WO CONTRAST INDICATION: TREMORS/ GENERALIZED BODY SPASMS TECHNIQUE: Multiplanar, multisequence imaging of the cervical spine without contrast. COMPARISON: None FINDINGS: [ANATOMY]: Cervical lordosis is maintained. [BONES]: The vertebral bodies are normal in height, alignment, and marrow signal. [CERVICAL CORD]: Normal cervical cord signal however focal area ligamentum flavum buckling with the e ffacement of the ventral and dorsal thecal sac at C6-7. [DISCS]: Disc desiccation most conspicuous at C5-6. [FACETS]: Unremarkable [OTHER]: There is no prevertebral soft tissue swelling. The visualized paraspinal soft tissues are no rmal. [C2-C3]: Unremarkable. [C3-C4]: Unremarkable. [C4-C5]: Unremarkable. [C5-C6]: Unremarkable. [C6-C7]: Trace 2-3 mm right paracentral disc protrusion and opposing ligamentum flavum buckling conta cting the cervical cord. [C7-T1]: Unremarkable. IMPRESSION: 1. Trace 2-3 mm right paracentral disc protrusion and opposing ligamentum flavum buckling contacting the cervical cord. 2. No abnormal cervical cord signal.
--- NOTE | 2024-11-14 21:16 | DVHPN2 ---
Subjective Patient is feeling better today. Family member at bedside. Patient apparently had an episode of what she says twitching in the face and body shaking unable to walk. Changes from previous H/P or p: No Changes Eyes: No Pain, No Vision change, No Conjunctivae inflammation, No Eyelid inflammation, No Other, No Redness ENT: No Ear pain, No Ear discharge, No Nose pain, No Nose discharge, No Nose congestion, No Mouth pain, No Mouth swelling, No Throat pain, No Throat swelling, No Other Cardiovascular: No Chest Pain, No Palpitations, No Orthopnea, No Paroxysmal Noc. Dyspnea, No Edema, No Lt Headedness, No Other Respiratory: Cough; No Dry; Shortness of breath; No SOB with excertion, No Wheezing, No Hemoptysis, No Pleuritic Pain, No Sputum, No Other Gastrointestinal: Nausea, Vomiting; No Abdominal Pain, No Diarrhea, No Constipation, No Melena, No Hematochezia, No Other Genitourinary: No Dysuria, No Frequency, No Incontinence, No Hematuria, No Retention, No Other Musculoskeletal: No other, No neck pain, No shoulder pain, No arm pain, No back pain, No hand pain, No leg pain, No foot pain Skin: No Rash, No Lesions, No Jaundice, No Bruising, No Other Objective Vitals Vital Signs Date Time Temp Pulse Resp B/P (MAP) Pulse Ox O2 Delivery O2 Flow Rate FiO2 11/14/24 17:00 98.6 62 18 115/62 (79) 97 98.6 11/14/24 08:10 Room Air* 0 21 Intake/Output Intake and Output 11/14/24 07:00 Intake Total 1870 ml Balance 1870 ml Intake Oral 1300 ml IV Total 570 ml # Voids 4 # Bowel Movements 1 Exam Alert awake oriented x3. Able to speak normally and times speaks with a slow nurse/slurred redness during conversation. Able to move all four extremities. No visible shakes tremors fasciculations noted. Heart regular rate and rhythm S1-S2. Lungs fair air movement without rales wheezes. Abdomen obese soft positive bowel sounds. Extremities no edema positive pulses. Neurologically no focal deficits. Medications Current Medications Medications Dose Ordered Sig/Krish Route Start Time Stop Time Status Last Admin Dose Admin Ceftriaxone Sodium 50 ml @ 100 mls/hr DAILY@2200 IV 11/12/24 22:00 11/13/24 21:17 100 MLS/HR Lorazepam 1 mg Q8HP PRN IV 11/11/24 23:15 11/14/24 09:12 1 MG Acetaminophen/ Hydrocodone Bitart 1 tab Q4HP PRN PO 11/11/24 23:15 11/13/24 09:03 1 TAB Ondansetron HCl 4 mg Q4HP PRN IV 11/11/24 23:15 Docusate Sodium 100 mg BIDPRN PRN PO 11/11/24 23:15 Acetaminophen 650 mg Q6HP PRN PO 11/11/24 23:15 Lactated Ringer's 1,000 ml @ 75 mls/hr [id number] IV 11/11/24 23:15 11/14/24 15:30 75 MLS/HR Nitroglycerin 0.4 mg Q5MINP PRN SL 11/12/24 00:15 Morphine Sulfate 2 mg Q30M PRN IV 11/12/24 00:15 Azithromycin 250 ml @ 125 mls/hr DAILY@2200 IV 11/12/24 22:00 11/13/24 22:20 125 MLS/HR Laboratory Results Laboratory Tests 11/12/24 04:32 HgA1c, TSH Test 11/14/24 11:39 Thyroid Stimulating Hormone (TSH) 2.33 uIU/mL (0.55-4.78) Urinalysis Test 11/12/24 00:00 Urine Color Colorless (Yellow) Urine Clarity Clear (Clear) Urine pH 6.5 (5.0-9.0) Urine Specific [place] 1.023 (1.001-1.035) Urine Protein Negative (Negative) Urine Ketones Negative (Negative) Urine Blood 3+ /uL (Negative) H Urine Nitrite Negative (Negative) Urine Bilirubin Negative (Negative) Urine Urobilinogen Normal mg/dL (Negative) Urine Leukocyte Esterase 1+ /uL (Negative) Urine RBC 607 /hpf (0 - 4) Urine Microscopic WBC 9 /HPF (0-5) H Urine Squamous Epithelial Cells Few /hpf (<5) Urine Bacteria None seen /hpf (None Seen) Urine Mucus Few (None Seen) Urine Glucose Normal mg/dL (Normal) Microbiology Microbiology Date/Time Source Procedure Growth Status 11/11/24 22:10 Blood Blood Culture - Preliminary NO GROWTH AFTER 48 HOURS OF INCUBATION. Resulted Assessment/Plan Assessment/Plan 1. Generalized body spasms/tremor/slurred speech status post normal MRI of the brain no acute stroke or pathology. 2. Generalized body muscle spasms unclear etiology 3. Right basilar lung basilar consolidation/pneumonia, on IV antibiotics 4.COPD currently not in exacerbation Possible conversion disorder however need to rule out other neurological causes. We will also receive spine MRI today. Waiting for Neurology consultation/input. Discussed with the family member at length regarding possible diagnosis including conversion disorder. Further clinical management per clinical course. Plan discussed with: Patient, Other (Family member at bedside) My Orders Orders - RUTHANN YOUNG MD Procedure Category Date Status Time Pt Request For Service PT 11/13/24 Logged 22:26 Cardiac DIET 11/14/24 Transmitted Diet-2gna,Lofat,Lochol Breakfast * Swallow Request ST 11/14/24 Transmitted 09:36 Cervical Wo Contrast MRI 11/14/24 Resulted 12:57 Date of Service: Nov 14, 2024 Billing Provider: RUTHANN YOUNG MD Common Visit Codes: [id number] INP/OBS CARE(MOD) RUTHANN YOUNG MD Nov 14, 2024 21:16
[2024-11-15] VITALS (7 sets, daily range): BP systolic 109–152; BP diastolic 59–98; PULSE 64–88; RESP 17–19; TEMP 97.1–97.5; O2SAT 96–99
--- NOTE | 2024-11-15 07:29 | DVH ---
INDICATION: follow up atelectasis TECHNIQUE: Frontal view of the chest. COMPARISON: XY CHEST PORTABLE on DOS: 11/11/24 FINDINGS: . The heart and mediastinal contours are grossly unremarkable. There is no evidence of pleural disea se. The lungs are clear. The bony structures of the chest are intact without fracture. IMPRESSION: 1. No evidence of acute disease.
[2024-11-15 08:35] LABS: Hematocrit 36.0 % (36.0-46.0); Hemoglobin 12.7 g/dL (12.2-16.2); Mean Corpuscular Hemoglobin 28.8 pg (28.0-32.0); Mean Corpuscular Volume 81.9 fL (80.0-100.0); Nucleated Red Blood Cells % 0.2 %
[2024-11-15 08:50] LABS: Alanine Aminotransferase 12 U/L (7-40); Albumin 3.9 g/dL (3.2-4.8); Alkaline Phosphatase 61 U/L (46-116); Anion Gap 7 (5-15); BUN/Creatinine Ratio 7.8 (10.0-20.0); Calcium 8.8 mg/dL (8.7-10.4); Carbon Dioxide 25 mmol/L (20-31); Glucose 87 mg/dL (74-106); Potassium 3.6 mmol/L (3.5-5.1); Sodium 141 mmol/L (136-145); Total Protein 6.2 g/dL (5.7-8.2)
[2024-11-15 08:51] LABS: Bilirubin, Total 0.7 mg/dL (0.2-1.0)
[2024-11-15 08:52] LABS: Blood Urea Nitrogen 6 mg/dL (9-23); Chloride 109 mmol/L (98-107)
--- NOTE | 2024-11-15 15:14 | DVHDS2 ---
Discharge Summary Date of Admission Nov 12, 2024 at 00:08 Date of Discharge: Nov 15, 2024 Labs/Diagnostic Data: Laboratory Results Test 11/15/24 08:04 11/15/24 01:30 11/14/24 11:39 11/12/24 00:00 White Blood Count 7.7 10^3/uL (4.4-10.8) Red Blood Count 4.40 10^6/uL (4.0-5.20) Hemoglobin 12.7 g/dL (12.2-16.2) Hematocrit 36.0 % (36.0-46.0) Mean Corpuscular Volume 81.9 fL (80.0-100.0) Mean Corpuscular Hemoglobin 28.8 pg (28.0-32.0) Mean Corpuscular Hemoglobin Concent 35.2 g/dL (32.0-36.0) Red Cell Distribution Width 14.7 % (11.8-14.3) Platelet Count 218 10^3/uL (140-450) Mean Platelet Volume 9.1 fL (6.9-10.8) Neutrophils (%) (Auto) 65.3 % (37.0-80.0) Lymphocytes (%) (Auto) 24.7 % (10.0-50.0) Monocytes (%) (Auto) 8.5 % (0.0-12.0) Eosinophils (%) (Auto) 1.1 % (0.0-7.0) Basophils (%) (Auto) 0.4 % (0.0-2.0) Neutrophils # (Auto) 5.0 10 ^3/uL (1.6-8.6) Lymphocytes # (Auto) 1.9 10 ^3/uL (0.4-5.4) Monocytes # (Auto) 0.7 10 ^3/uL (0-1.3) Eosinophils # (Auto) 0.1 10 ^3/uL (0-0.8) Basophils # (Auto) 0 10 ^3/uL (0-0.2) Nucleated Red Blood Cells 0.2 % Sodium Level 141 mmol/L (136-145) Potassium Level 3.6 mmol/L (3.5-5.1) Chloride Level 109 mmol/L (98-107) Carbon Dioxide Level 25 mmol/L (20-31) Anion Gap 7 (5-15) Blood Urea Nitrogen 6 mg/dL (9-23) Creatinine 0.77 mg/dL (0.550-1.02) Glomerular Filtration Rate Calc 97 mL/min (>90) BUN/Creatinine Ratio 7.8 (10.0-20.0) Serum Glucose 87 mg/dL (74-106) Calcium Level 8.8 mg/dL (8.7-10.4) Total Bilirubin 0.7 mg/dL (0.2-1.0) Aspartate Amino Transferase (AST) 15 U/L (13-40) Alanine Aminotransferase (ALT) 12 U/L (7-40) Alkaline Phosphatase 61 U/L (46-116) Total Protein 6.2 g/dL (5.7-8.2) Albumin 3.9 g/dL (3.2-4.8) Stool Occult Blood Negative (Negative) Stool Occult Blood Sample #3 (Negative) Stool for White Cells None seen C-Reactive Protein High Sensitivity 0.45 mg/dL (<1.0) Vitamin B12 Level 299 pg/mL (211-911) Thyroid Stimulating Hormone (TSH) 2.33 uIU/mL (0.55-4.78) Free Thyroxine (T4) Calculated 1.39 ng/dL (0.89-1.76) Urine Color Colorless (Yellow) Urine Clarity Clear (Clear) Urine pH 6.5 (5.0-9.0) Urine Specific [place] 1.023 (1.001-1.035) Urine Protein Negative (Negative) Urine Ketones Negative (Negative) Urine Blood 3+ /uL (Negative) Urine Nitrite Negative (Negative) Urine Bilirubin Negative (Negative) Urine Urobilinogen Normal mg/dL (Negative) Urine Leukocyte Esterase 1+ /uL (Negative) Urine RBC 607 /hpf (0 - 4) Urine Microscopic WBC 9 /HPF (0-5) Urine Squamous Epithelial Cells Few /hpf (<5) Urine Bacteria None seen /hpf (None Seen) Urine Mucus Few (None Seen) Urine Glucose Normal mg/dL (Normal) Test 11/11/24 22:01 11/11/24 19:20 11/11/24 18:16 11/11/24 18:10 Lactic Acid Level 1.0 mmol/L (0.4-2.0) Troponin I High Sensitivity < 3 ng/L (</=34) Influenza Type A Antigen Negative (Negative) Influenza Type B Antigen Negative (Negative) SARS-CoV-2 Antigen (Rapid) Negative (NEGATIVE) B-Type Natriuretic Peptide 38.41 pg/mL (0-100) Lipase 47 U/L (12-53) Other Laboratory Tests 11/15/24 08:04 Brief Hx & Hospital Course: 40-year-old female with known history of COPD, presented to the hospital with a generalized body spasms tremors questionable left facial droop(not present), slurred speech eventually patient was admitted for ruling out acute stroke. Patient underwent CT head which shows no evidence of acute infarct. Patient underwent and I brain as well as MRI C-spine which shows no evidence of any acute pathology. Patient was initially thought to have some right basilar lung consolidation, status post couple of dose of IV antibiotics. But patient is clinically has no signs of infection. Chest x-ray is cleared. Patient will be discharged home with a close follow up as an outpatient with the PCP. Patient's was seen and evaluated by me in the presence of bedside RN as well as patient's all the CT and MRI finding explained to the patient. Condition at Discharge: Stable Final Diagnosis/Problems List 40-year-old female with known history of COPD, presented to the hospital with a generalized body spasms tremors questionable left facial droop(not present), slurred speech found to have 1. Generalized body spasms/tremor/slurred speech ruled out acute CVA 2. Generalized body muscle spasms ruled out any seizures 3. Right basilar lung opacity/atelectasis, resolved no need for antibiotics 4.COPD currently not in exacerbation Discharge Disposition: Home SNF Discharge Will this Physician continue t: No Discharge Instruct/Medications Diet: Cardiac 2g Na,low cholest Activity: No Restrictions, As Tolerated Follow Up/Referral: Follow up with the PCP in 1-2 weeks Medications: Resume medications Discharge Statement: "Patient was advised to return to the ER or call 911 if any headaches, dizziness, shortness of breath, chest pain, abdominal pain, bleeding, fevers, or worsening of medical condition. Patient was counseled about treatment plan, medications, possible side effects, patientverbalized understanding. All questions were answered to the best of my ability. This discharge took greater then 30 minutes in planning, reviewing documentation, counseling the patient, and discussing with other team members." ASSESSMENT ASSESSMENT Assessment 40-year-old female with known history of COPD, presented to the hospital with a generalized body spasms tremors questionable left facial droop(not present), slurred speech found to have 1. Generalized body spasms/tremor/slurred speech ruled out acute CVA 2. Generalized body muscle spasms ruled out any seizures 3. Right basilar lung opacity/atelectasis, resolved no need for antibiotics 4.COPD currently not in exacerbation Date of Service: Nov 15, 2024 Billing Provider: LINDA VALENCIA MD Common Visit Codes: [id number] DISCH DAY >30min LINDA VALENCIA MD Nov 15, 2024 15:14
== END 2024-11-15 20:50 | disposition home or self-care (01) | DRG 351 ==
LOC: ER 17:13 → EDBD 17:13 → OVERFLOW 11-12 00:08 → TELE-WESTW 11-12 23:50
PROVIDERS: ADMIT Internal Medicine; ATTEND Internal Medicine
DX: M62.838 Other muscle spasm (principal); J15.69 Pneumonia due to other Gram-negative bacteria; R65.10 Systemic inflammatory response syndrome (SIRS) of non-infectious origin without acute organ dysfunction; J44.0 Chronic obstructive pulmonary disease with (acute) lower respiratory infection; J15.9 Unspecified bacterial pneumonia; R25.1 Tremor, unspecified; Z20.822 Contact with and (suspected) exposure to COVID-19; F80.81 Childhood onset fluency disorder; Z79.899 Other long term (current) drug therapy
CPT/HCPCS: 36415; 70450; 70551; 71045; 72141; 80053; 81001; 82270; 82607; 83605; 83690; 83880; 83986; 84439; 84443; 84484; 85025; 85048; 86141; 87040; 87426; 87804; 92610; 93005; 96361; 96374; G0378; J2405